=== PATIENT | female | born 1960 | race Caucasian/White ===

== ENCOUNTER 2025-03-22 06:17 | Day surgery (SDC) | payer OTHER, SELFPAY | END 2025-03-22 08:52 | disposition home or self-care (01) | LOC: GI 06:17 | PROVIDERS: ATTENDING PHYSICIAN Internal Medicine Gastroenterology; FAMILY PHYSICIAN Internal Medicine | DX: Z12.11 Encounter for screening for malignant neoplasm of colon (principal); K64.8 Other hemorrhoids; Z86.0100 Personal history of colon polyps, unspecified | CPT/HCPCS: G0105 ==